=== PATIENT | male | born 1985 | race Two or more races ===

== ENCOUNTER 2019-12-25 10:17 | Emergency (ER) | payer OTHER, SELFPAY ==
--- NOTE | ~2019-12-25 | XR_ITS ---
EXAMINATION: XR chest 2V DATE: 12/25/2019 10:59 INDICATION: Left chest pain. TECHNIQUE: Frontal and lateral views of the chest were obtained. COMPARISON: None. FINDINGS: There is no pneumonia, pleural effusion, or pneumothorax. The heart size is normal. IMPRESSION: 1. No acute cardiopulmonary disease. Reviewed, dictated and finalized at location A.
[2019-12-25 10:22] VITALS: PULSE 76; RESP 21; TEMP 36.7; O2SAT 99
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
[2019-12-25 10:26] VITALS: PULSE 80
--- NOTE | 2019-12-25 10:33 | ECG_ITS ---
Measurements Intervals [place] Rate: 79 P: 30 [place]: 145 QRS: 83 QRSD: 105 T: 37 QT: 363 QTc: 417 Interpretive Statements SINUS RHYTHM INCOMPLETE RIGHT BUNDLE BRANCH BLOCK PEAKED T WAVES- CONSIDER HYPERKALEMIA OR ISCHEMIA BASELINE ARTIFACT- III ABNORMAL ECG Electronically Signed On 12-25-2019 11:37:26 CDT by Chele Hollingsworth D.O.
--- NOTE | 2019-12-25 10:44 | ECG_ITS ---
Measurements Intervals [place] Rate: 56 P: 9 [place]: 145 QRS: 72 QRSD: 104 T: 30 QT: 399 QTc: 385 Interpretive Statements SINUS BRADYCARDIA WITH SINUS ARRHYTHMIA INCOMPLETE RIGHT BUNDLE BRANCH BLOCK PEAKED T WAVES- CONSIDER HYPERKALEMIA OR ISCHEMIA ABNORMAL ECG Electronically Signed On 12-25-2019 11:38:07 CDT by Chele Hollingsworth D.O.
[2019-12-25 10:46] LABS: Basophils Absolute Auto 0.1 K/mm3 (0.0-0.1); Basophils Percent Auto 0.9 % (0.2-1.2); Eosinophils Absolute Auto 0.3 K/mm3 (0-0.3); Eosinophils Percent Auto 4.9 % (0-4.4); Hematocrit 46.1 % (42.0-52.0); Hemoglobin 15.3 g/dL (14.0-18.0); Immature Granulocyte Absolute 0.01 K/mm3 (0.00-0.031); Immature Granulocyte Percent A 0.2 % (0-0.5); Lymphocytes Absolute Auto 1.88 K/mm3 (0.9-3.2); Lymphocytes Percent Auto 35.7 % (18.3-44.2); Mean Corpuscular HGB Conc 33.2 g/dl (32-36); Mean Corpuscular Hemoglobin 30.1 pg (26-34); Mean Corpuscular Volume 90.7 fl (80-100); Mean Platelet Volume 9.8 fl (7.4-10.4); Monocytes Absolute Auto 0.5 K/mm3 (0.1-0.6); Monocytes Percent Auto 9.3 % (2.6-8.5); Neutrophils Absolute Auto 2.6 K/mm3 (1.3-6.7); Platelet Count Result 208 k/mm3 (150-375); Red Blood Count 5.08 M/mm3 (4.6-6.20); Red Cell Distribution Width 12.3 % (11.5-14.5); White Blood Count 5.3 K/mm3 (4.5-10.0)
[2019-12-25] MEDS: ASPIRIN 81 MG CHEWABLE TABLET 324 MG PO (10:50)
[2019-12-25] MEDS: NITROGLYCERIN SL 0.4 MG TABLET SUBLINGUAL (10:51)
[2019-12-25 10:55] LABS: Partial Thromboplastin Time 30.3 SECONDS (22.3-36.8)
[2019-12-25 10:58] LABS: Alanine Aminotransferase 26 U/L (4-50); Albumin Level 4.2 g/dL (3.5-5.1); Alkaline Phosphatase 66 U/L (38-126); Aspartate Amino Transferase 25 U/L (17-59); Bilirubin,Total 0.7 mg/dL (0.2-1.3); Blood Urea Nitrogen 14 mg/dL (9-20); Calcium 8.8 mg/dL (8.4-10.2); Carbon Dioxide 27 mmol/L (22-30); Chloride 105 mmol/L (98-107); Estimated CRCL calculation 119 ml/min; Estimated Glomerular Filt Rate > 60; Glucose 94 mg/dL (75-110); Lipase 77 U/L (23-300); Potassium 3.9 mmol/L (3.4-5.0); Sodium 139 mmol/L (137-145)
--- NOTE | 2019-12-25 11:05 | PC.NURSE ---
2nd nitro given. Pt states nitro did not alleviate pain
[2019-12-25] MEDS: MORPHINE SULFATE 2 MG/ML INJ IV PUSH (11:08)
[2019-12-25] MEDS: ONDANSETRON INJ 4 MG/2 ML VIAL IV PUSH (11:08)
[2019-12-25 11:09] LABS: Troponin I < 0.012 ng/mL (0.000-0.034)
[2019-12-25 12:26] VITALS: BP 108/62; PULSE 55; RESP 20; O2SAT 96
--- NOTE | 2019-12-25 13:17 | ECG_ITS ---
Measurements Intervals [place] Rate: 51 P: 9 [place]: 146 QRS: 69 QRSD: 109 T: 28 QT: 422 QTc: 390 Interpretive Statements SINUS BRADYCARDIA INCOMPLETE RIGHT BUNDLE BRANCH BLOCK PEAKED T WAVES- CONSIDER HYPERKALEMIA OR ISCHEMIA ABNORMAL ECG Electronically Signed On 12-25-2019 13:30:25 CDT by Chele Hollingsworth D.O.
[2019-12-25 13:44] VITALS: BP 124/77; PULSE 66; RESP 20; TEMP 36.7; O2SAT 99
[2019-12-25 14:33] LABS: Troponin I < 0.012 ng/mL (0.000-0.034)
[2019-12-25 14:46] VITALS: BP 121/72; PULSE 54; RESP 20; TEMP 36.8; O2SAT 98
== END 2019-12-25 14:48 | disposition home or self-care (01) ==
PROVIDERS: Emergency Provider Emergency Medicine
DX: R07.89 Other chest pain (principal); F17.210 Nicotine dependence, cigarettes, uncomplicated
CPT/HCPCS: 36415; 71046; 80053; 83690; 84484; 85025; 85610; 85730; 93005; 96374; 96375; 99284; A9270; J2270; J2405